=== PATIENT | female | born 1975 | race Caucasian/White ===

== ENCOUNTER 2021-12-02 14:49 | Emergency (ER) | payer SELFPAY ==
[2021-12-02 15:13] VITALS: BP 153/97; PULSE 81; RESP 24; TEMP 37.2; O2SAT 100
--- NOTE | 2021-12-02 15:34 | ED.FEMALEGU ---
HPI - Female Genitourinary General Stated complaint: Low Back Pain Time Seen by Provider: 12/02/21 15:34 Source: patient Mode of arrival: ambulatory Limitations: no limitations Course Vital Signs Vital signs: Vital Signs Temperature 37.2 C 12/02/21 15:13 Pulse Rate 81 12/02/21 15:13 Respiratory Rate 24 H 12/02/21 15:13 Blood Pressure 153/97 H 12/02/21 15:13 Pulse Oximetry 100 12/02/21 15:13 Oxygen Delivery Room Air 12/02/21 15:13 Temperature 37.2 C 12/02/21 15:13 Pulse Rate 81 12/02/21 15:13 Respiratory Rate 24 H 12/02/21 15:13 Blood Pressure 153/97 H 12/02/21 15:13 Pulse Oximetry 100 12/02/21 15:13 Oxygen Delivery Room Air 12/02/21 15:13 MDM - Female Genitourinary Lab Data Labs: Urine Glucose Negative Reference Range: Negative Urine Bilirubin Negative Reference Range: Negative Urine Ketone Negative Reference Range: Negative Urine Specific [place] 1.020 Reference Range:1.001-1.035 Urine Blood Trace Reference Range: Negative * * Urine pH 8.5 Reference Range: 5.0-9.0 Urine Protein 1+ Reference Range: Negative Urine Urobilinogen 0.2 Reference Range: 0.2-1.0 Urine Nitrate Negative Reference Range: Negative Urine Leukocyte Negative Reference Range: Negative Urine Color Dark,Yellow Reference Range: Yellow Urine Characteristics Cloudy Discharge Plan Discharge Follow-up/Referrals: PHYSICIAN,ANALYTIC MANAGER [Primary Care Provider] -
[2021-12-02] MEDS: KETOROLAC (*BKC) 60 MG/2 ML VIAL IM (16:00)
--- NOTE | 2021-12-02 17:00 | ED.BACK ---
HPI - Back Pain/Injury General Chief Complaint: Back Pain/Injury Stated Complaint: Low Back Pain Time Seen by Provider: 12/02/21 15:34 History of Present Illness HPI Narrative: 45-year-old female presents with complaint of low back pain for 2 to 3 days. States that pain first started while at work. 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 States after that she does have some intermittent aching low back pain. The next day she had intercourse with her and states that back was very sore and could barely get up out of bed. Has been treating back pain with ibuprofen. States very tight and difficult to bend over and complete tasks at work. Is on her feet all day at work. Is requesting days off work. No numbness or tingling to lower extremities, no weakness. No loss of bowel or bladder. Ambulatory with steady gait. All systems reviewed and negative except as noted above. Related Data Allergies Allergy/AdvReac Type Severity Reaction Status Date / Time No Known Allergies Allergy Verified 12/02/21 15:41 Review of Systems Review of Systems: CONSTITUTIONAL: Denies fever, chills, or sweats. EYES: Denies visual changes, redness, or discharge. ENT: Denies rhinorrhea, congestion, sore throat, or otalgia. CARDIOVASCULAR: Denies chest pain, palpitations, or edema. RESPIRATORY: Denies cough or dyspnea. GASTROINTESTINAL: Denies abdominal pain, nausea, vomiting, or diarrhea. GENITOURINARY: Denies dysuria or hematuria. SKIN: Denies rash or itching. MUSCULOSKELETAL: Reports low back pain. NEUROLOGIC: Denies headache, numbness, or weakness. PSYCHIATRIC: Denies anxiety or depression. All other systems reviewed are negative, except as documented in HPI. PMFSH Comments At time of signature, agree with nursing past medical, surgical, social and family history. There is no relevant family history pertinent to the presenting complaint. Exam Narrative: GENERAL: This is a well-nourished, well-developed patient, in no apparent distress. HEAD: normocephalic, atraumatic. EYES: PERRL. Sclera clear/white. Vision is grossly intact. EARS: External ears normal NOSE: External nose normal NECK: Neck supple, non-tender without lymphadenopathy, masses or thyromegaly. CARDIOVASCULAR: Regular rate and rhythm without murmurs, gallops, or rubs. RESPIRATORY: Clear to auscultation. Breath sounds equal bilaterally. No wheezes, rales, or rhonchi. SKIN: warm, Dry, intact with no suspicious lesions or rash, good texture and turgor. NEURO: awake, alert, and oriented to person, place and time. There were no obvious focal neurologic abnormalities. EXTREMITIES: No joint tenderness, effusion, or edema noted. BACK: No tenderness to low back. Muscle spasm noted. Decreased flexion due to pain. Lower extremity strength 5 out of 5. No CVA tenderness. Course Course Level of Care: Express Care Visit Vital Signs Vital signs: Vital Signs Temperature 37.2 C 12/02/21 15:13 Pulse Rate 81 12/02/21 15:13 Respiratory Rate 24 H 12/02/21 15:13 Blood Pressure 153/97 H 12/02/21 15:13 Pulse Oximetry 100 12/02/21 15:13 Oxygen Delivery Room Air 12/02/21 15:13 Temperature 37.2 C 12/02/21 15:13 Pulse Rate 81 12/02/21 15:13 Respiratory Rate 24 H 12/02/21 15:13 Blood Pressure 153/97 H 12/02/21 15:13 Pulse Oximetry 100 12/02/21 15:13 Oxygen Delivery Room Air 12/02/21 15:13 Reviewed MDM - Back Pain/Injury MDM Narrative Medical decision making narrative: Patient is aware of diagnosis, understands and agrees to treatment plan. Anticipatory guidance given. Patient agrees to follow-up as directed and is aware of reasons to seek care at the emergency department. Portions of this record may have been created with voice recognition software Lab Data Labs: Urine Glucose Negative
== END 2021-12-02 16:15 | disposition home or self-care (01) ==
PROVIDERS: Emergency Provider Nurse Practitioner Family
DX: S39.012A Strain of muscle, fascia and tendon of lower back, initial encounter (principal); X50.0XXA Overexertion from strenuous movement or load, initial encounter
CPT/HCPCS: 81003; 96372; 99213; G0463; J1885

== ENCOUNTER 2023-08-15 09:10 | Outpatient (CLI) | payer SELFPAY ==
--- NOTE | ~2023-08-15 | US_ITS ---
EXAMINATION: US pelvic complete w TV DATE: 08/15/2023 09:44 INDICATION: Abnormal uterine bleeding. TECHNIQUE: Multiple transabdominal and transvaginal sonographic images of the pelvis were obtained. COMPARISON: None. FINDINGS: TRANSABDOMINAL ULTRASOUND: The uterus measures 10.8 x 6.5 x 6.5 cm. There is no free fluid in the pelvis. TRANSVAGINAL ULTRASOUND: The endometrial complex measures 7 mm in thickness. The right ovary is not visualized. The left ovary measures 4.1 x 4.9 x 3.7 cm. There is a 4.6 cm cyst in left ovary with low level echoes, likely a he morrhagic cyst.. There is normal vascular flow in left ovary. IMPRESSION: 1. 4.6 cm hemorrhagic cyst in left ovary. Pelvis ultrasound is recommended in 6-12 weeks. Reviewed, dictated and finalized at location A. IMPRESSION: 1. 4.6 cm hemorrhagic cyst in left ovary. Pelvis ultrasound is recommended in 6 -12 weeks.
== END 2023-08-15 09:11 ==
PROVIDERS: PCP Nurse Practitioner Family; Visit Provider Nurse Practitioner Family
DX: N93.9 Abnormal uterine and vaginal bleeding, unspecified (principal); N83.202 Unspecified ovarian cyst, left side
CPT/HCPCS: 76830; 76856

== ENCOUNTER 2023-11-25 08:31 | Outpatient (CLI) | payer MEDICAID, SELFPAY ==
--- NOTE | ~2023-11-25 | US_ITS ---
Pelvic ultrasound. Clinical History: Ovarian cyst Technique: Realtime transabdominal and transvaginal scanning of the pelvis was performed. Color flow Doppler and Doppler spectral analysis were performed. COMPARISON: 08/15/2023 Findings: The uterus is anteverted. The endometrial stripe has a thickness of 8 mm. No focal mass is identified. The right ovary measures 3.3 x 2.8 x 3.5 cm. Simple right ovarian cyst measures 3.1 cm in diameter. The left ovary measures 4.2 x 4.0 x 2.8 cm. Left ovarian cyst measures 3.5 cm in diameter, with proba ble single thin septation. There is no evidence of free fluid in the cul de sac. Impression: Simple 3.1 cm right ovarian cyst. Mildly complex 3.5 mm left ovarian cyst, as detailed above, minimally changed from prior exam. Consid er additional follow-up ultrasound in 6-8 weeks to reassess. Reviewed, dictated and finalized at location . Impression: Simple 3.1 cm right ovarian cyst. Mildly complex 3.5 mm left ovarian cyst, as detailed above, minimally changed f rom prior exam. Consider additional follow-up ultrasound in 6-8 weeks to reasse ss.
== END 2023-11-25 08:32 ==
PROVIDERS: PCP Nurse Practitioner Family; Visit Provider Nurse Practitioner Family
DX: N83.201 Unspecified ovarian cyst, right side (principal)
CPT/HCPCS: 76830; 76856